=== PATIENT | female | born 2000 | race Hispanic/Latino ===

== ENCOUNTER 2020-10-10 14:18 | Emergency (ER) | payer SELFPAY ==
[~2020-10-10] VITALS: Ht 165.1 cm; Wt 74.7 kg
[2020-10-10 15:31] LABS: BASO # 0.1 10^3/uL (0.0-0.2); BASO % 0.7 % (0.0-1.0); EOS # 0.1 10^3/uL (0.0-0.5); EOS % 1.4 % (0.0-3.0); HEMATOCRIT 40.7 % (36.0-47.0); HEMOGLOBIN 13.7 g/dl (12.0-15.5); LYMPH # 1.9 10^3/uL (1.5-5.0); LYMPH % 26.4 % (24.0-44.0); MEAN CORPUSCULAR HEMOGLOBIN 30.4 pg (27.0-33.0); MEAN CORPUSCULAR HGB CONC 33.7 g/dl (32.0-36.5); MEAN CORPUSCULAR VOLUME 90.2 fl (80.0-96.0); MONO # 0.8 10^3/uL (0.0-0.8); MONO % 10.6 % (2.0-8.0); NEUTROPHILS # 4.4 10^3/uL (1.5-8.5); NEUTROPHILS % 60.6 % (36.0-66.0); PLATELET COUNT, AUTOMATED 268 10^3/uL (150-450); RED BLOOD COUNT 4.51 10^6/uL (4.00-5.40); WHITE BLOOD COUNT 7.3 10^3/uL (4.0-10.0)
[2020-10-10 15:57] LABS: BLOOD UREA NITROGEN 7 MG/DL (7-18); CALCIUM LEVEL 9.7 MG/DL (8.5-10.1); CARBON DIOXIDE LEVEL 27 MEQ/L (21-32); CHLORIDE LEVEL 110 MEQ/L (98-107); CREATININE FOR GFR 0.73 MG/DL (0.55-1.30); GLOMERULAR FILTRATION RATE > 60.0 (>60); GLUCOSE, FASTING 95 MG/DL (70-100); HCG, SERUM QUANTITATIVE 3 MIU/ML; POTASSIUM SERUM 3.6 MEQ/L (3.5-5.1); SODIUM LEVEL 142 MEQ/L (136-145)
--- NOTE | 2020-10-10 17:15 | REP ---
INDICATION: irregular bleeding/clots/cramping COMPARISON: None. TECHNIQUE: Transabdominal pelvic ultrasound followed by transvaginal examination for better evaluation of the endometrium and adnexa with color Doppler evaluation of the ovaries. FINDINGS: Bladder is unremarkable and measures 6.5 x 7.7 x 2.7 cm. Normal anteverted uterus measures 8.7 x 4.3 x 5.6 cm. The endometrial complex measures 8.3 mm thickness. No discrete uterine or endometrial abnormalities are appreciated. Bilateral ovaries are normal in appearance and vascularity without evidence for torsion. Right ovary measures 2.9 x 1.6 x 2.6 cm includes 1.3 cm involuting follicle; R I = 0.60. Left ovary measures 2.6 x 1.6 x 2.0 cm; R I = 0.43. No pelvic fluid or adnexal mass lesion. IMPRESSION: Normal pelvic ultrasound. <Electronically signed by Eric Florez > 10/10/20 [id number]
[2020-10-10 18:07] LABS: GLUCOSE, URINE (UA) MANUAL 1+(100 MG/DL) mg/dL (NEGATIVE); KETONE, URINE MANUAL 1+ mg/dL (NEGATIVE); UROBILINOGEN, URINE MANUAL NORMAL (NORMAL)
[2020-10-10 18:08] LABS: BILIRUBIN, URINE MANUAL NEGATIVE (NEGATIVE); RBC, URINE TNTC /hpf (0-3); SQUAMOUS EPITHELIAL CELL URINE SMALL AMOUNT /hpf (SMALL AMT)
[2020-10-10 18:13] LABS: BACTERIA, URINE NONE SEEN; HYALINE CAST, URINE NONE SEEN /lpf (0-1)
[2020-10-10 18:14] LABS: TRICHOMONAS, URINE LARGE AMOUNT
[2020-10-10 18:27] VITALS: BP 128/72
== END 2020-10-10 18:29 | disposition home or self-care (01) ==
LOC: M ED 14:18
DX: N92.6 Irregular menstruation, unspecified (principal); F17.290 Nicotine dependence, other tobacco product, uncomplicated; Z98.890 Other specified postprocedural states